=== PATIENT | female | born 1940 | race Caucasian/White ===

== ENCOUNTER 2016-05-24 10:45 | Inpatient (IN) ==
[2016-05-24] MEDS ORDERED: ASPIRIN PO STA (11:19)
--- NOTE | 2016-05-24 11:26 | PROVIDER DOCUMENTATION ---
HPI-General Adult - General Chief Complaint: B/P Problems Stated Complaint: BP PROBLEMS Time Seen by Provider: 05/24/16 10:52 Source: patient, family Allergies/Adverse Reactions: Patient Allergies Allergy/AdvReac Type Severity Reaction Status Date / Time carbamazepine [From Tegretol] Allergy Mild RASH Verified 05/24/16 12:31 Tetanus Vaccines and Toxoid Allergy Mild RASH Verified 05/24/16 12:31 [Tetanus] adhesive Allergy Unknown Verified 05/24/16 12:31 Home Medications: Home Medication List Medication Instructions Recorded Confirmed Last Taken Type Metformin [Glucophage] 500 mg PO DAILY 01/04/12 05/24/16 05/24/16 History Amantadine [Symmetrel] 100 mg PO BID 05/20/15 05/24/16 05/24/16 History Armodafinil [Nuvigil] 150 mg PO QAM 05/20/15 05/24/16 05/24/16 History Divalproex [Depakote] 500 mg PO QHS 05/20/15 05/24/16 05/23/16 History LISINOpril [Prinivil] 20 mg PO DAILY 05/20/15 05/24/16 05/24/16 History Lactobacillus Acidophilus 1 each PO QAM 05/20/15 05/24/16 05/24/16 History [Acidophilus] Lansoprazole 30 mg PO DAILY 05/20/15 05/24/16 05/24/16 History Memantine HCl/Donepezil HCl 1 each PO QHS 05/20/15 05/24/16 05/23/16 History [Namzaric 28 mg-10 mg Capsule] Metoprolol [Lopressor] 25 mg PO QHS 05/20/15 05/24/16 05/24/16 History Polyethylene Glycol 3350 [Miralax] 17 gm PO PRN PRN 05/20/15 05/24/16 05/24/16 History Psyllium Husk [Metamucil] 1 each PO DAILY 05/20/15 05/24/16 05/24/16 History Sertraline [Zoloft] 100 mg PO QHS 05/20/15 05/24/16 05/23/16 History Sodium Chloride 1,000 gm PO BID 05/20/15 05/24/16 05/24/16 History Tizanidine [Zanaflex] 2 mg PO TID 05/20/15 05/24/16 05/24/16 History Tramadol [Ultram] 50 mg PO PRN PRN 05/20/15 05/24/16 12/16/15 History l Gasseri/B Bifidum/B Longum 1 each PO DAILY 05/20/15 05/24/16 05/24/16 History [TinyBytes Capsule] - History of Present Illness -Gen Adult Nature of Presenting Problems: Pt has MS and has been [id number] with a suprapubic cath. Pt has been rotating oral Abx for prophylactic treatment. Currently taking Cipro. Reports her BP has been elevated and she had chest tightness and vomited this morning. Denies TOLBERT/F/C and reports no concerns for UTI. Pt looks comfortable when seen and reports her chest tightness is resolved. Pt denies any cardiac history and no DMII. No recent cardiac work up. Location of Pain/Injury: reports: chest Pain Radiation: reports: no radiation Quality of Pain: reports: pressure Severity: reports: mild Onset/Duration: reports: last night Timing: reports: improving, gone now Context/Activities at Onset: reports: none Modifying Factors: improves with: nothing. worse with: coughing, lying down, massage, palpation, rest, urinating Associated Symptoms: reports: denies symptoms. denies: cough, EENT symptoms, fatigue, fever/chills, loss of appetite, malaise, nausea, rash, seizure Similar Symptoms Previously?: No Recently seen or treated by another doctor?: Yes Review of Systems - Adult - REVIEW OF SYSTEMS - ADULT Constitutional: reports: no symptoms reported Eyes: reports: no symptoms reported Ears, Nose, Mouth & Throat: reports: no symptoms reported Cardiovascular: reports: see HPI, chest pain. denies: poor circulation, PND, syncope Respiratory: reports: no symptoms reported Gastrointestinal: reports: no symptoms reported Genitourinary: reports: no symptoms reported Musculoskeletal: reports: no symptoms reported, see HPI. denies: bone pain, frequent leg cramps Integumentary: reports: no symptoms reported Neurological: reports: see HPI Psychiatric: reports: no symptoms reported Endocrine: reports: no symptoms reported Hematologic/Lymphatic: reports: no symptoms reported All Other Systems: Reviewed and Negative Past History - Adult - PAST MEDICAL HISTORY-ADULT Review of Records: reports: Old Records Reviewed, Nursing Assessment Review, Medications Reviewed, Social history reviewed & non-contributory. Cardiovascular: reports: HTN Neurological: reports: CVA, Multiple Sclerosis, TIA - PRIOR SURGERIES/PROCEDURES Surgical/Procedure History: reports: reviewed, not pertinent - IMMUNIZATION STATUS Childhood Immunizations: See Nurse Assessment Flu Vaccine: See Nurse Assessment - FAMILY HISTORY Family History: reviewed, not pertinent Physical Exam-General - PHYSICAL EXAM-ADULT Initial Vital Signs Reviewed: Yes - CONSTITUTIONAL General Appearance: appears well, alert, no apparent distress - EYES Eyes: PERRL/EOMI, pink conjunctivae - HEAD, EARS, NOSE, MOUTH & THROAT HENMT: normocephalic/atraumatic, moist mucous membranes, normal ENT inspection, TMs normal, pharynx normal - NECK Neck: non-tender, full range of motion, supple, Brudzinski's sign - RESPIRATORY Respiratory: chest non-tender, lungs clear, normal breath sounds, no pleuratic chest pain, no respiratory distress, no accessory muscle use - CARDIOVASCULAR Cardiovascular: normal peripheral pulses, regular rate, rhythm, no edema, no gallop - GASTROINTESTINAL (ABDOMEN) Abdominal Exam: normal bowel sounds, non tender - MUSCULOSKELETAL Back Exam: normal inspection, no CVA tenderness, no vertebral tenderness Extremity: normal range of motion, non-tender, normal gait, normal inspection - SKIN Integumentary: normal color, normal turgor, warm/dry - NEUROLOGIC Neurologic: grossly normal, no motor/sensory deficits - PSYCHIATRIC Psych/Mental Status: normal mood/affect, normal thought content, normal thought process, oriented x 3 Progress - PLAN OF CARE/RESULTS Progress/Plan/Lab Results: Vital Signs - 8 hr 05/24/16 10:52 Temperature 97.9 F Pulse Rate 108 H Respiratory Rate 20 Blood Pressure 167/113 O2 Sat by Pulse Oximetry 100 Orders Category Date Time Status Cardiac Monitoring DIRECTED Care 05/24/16 11:19 Ordered Saline Loc NOW Care 05/24/16 11:19 Ordered CHEST-PORTABLE [RAD] Stat Exams 05/24/16 11:20 Ordered CBC WITH ELECTRONIC DIFF [HEME] Stat Lab 05/24/16 11:19 Uncollected CK PROFILE [SP CHEM] Stat Lab 05/24/16 11:19 Uncollected COMPREHENSIVE METABOLIC PANEL [CHEM] Stat Lab 05/24/16 11:19 Uncollected D-DIMER [CHEM] Stat Lab 05/24/16 11:19 Uncollected MAGNESIUM [CHEM] Stat Lab 05/24/16 11:19 Uncollected PRO B-NATRIURETIC PEPTIDE Stat Lab 05/24/16 11:19 Uncollected PROTIME WITH INR [COAG] Stat Lab 05/24/16 11:19 Uncollected PTT [COAG] Stat Lab 05/24/16 11:19 Uncollected TROPONIN T Stat Lab 05/24/16 11:19 Uncollected UA NIMS W/REFLEX CULT [URINALYSIS] Stat Lab 05/24/16 11:20 Uncollected Aspirin Med 05/24/16 11:19 Stat 325 mg PO STAT STA EKG [EKG] Stat Ther 05/24/16 11:19 Ordered Result Diagrams: 05/24/16 12:00 05/24/16 12:00 - REASSESSMENT Reassessment #1 Time Reassessed: 18:10 Status: improving (Will admit to Dr. Hameed for further work up and management.) - EKG 1 EKG Interpretation (*Must complete 3 of following elements*): Normal Rate: 100 Rhythm: NSR Frostproof: normal [place] Interval: normal ST Wave: normal - XRAY 1 XRAY Study: Chest XRAY Interpretation: Stable chest - CT/MRI 1 MRI Study: Chest Impression: Abnormal MRI Results: No PE, but ascities. Departure - Departure Time of Disposition Decision: 18:10 DIAGNOSIS: Chest pain Qualifiers: Chest pain type: precordial pain Qualified Code(s): R07.2 - Precordial pain Ascites Qualifiers: Ascites type: other type Qualified Code(s): R18.8 - Other ascites Disposition: ADMITTED INPATIENT 09 Certified Medical Emergency: Emergent Condition: Stable Referrals and Follow-Ups: David Hameed MD [Primary Care Provider] -
[2016-05-24 12:07] LABS: MANUAL DIFF NEEDED? NO
[2016-05-24 12:13] LABS: BASO% 0.4 % (0.0-0.8); EOS# 0.23 X1000 (0.0-0.7); EOS% 3.2 % (0.0-10.0); HEMATOCRIT 34.8 % (37.0-47.0); LYMPH# 1.04 X1000 (1.2-3.4); LYMPH% 14.3 % (20.5-51.1); MCH 25.4 PG (27-31); MCHC 31.6 g/dL (33-37); MCV 80.4 FL (81-99); MONO% 16.5 % (1.7-9.3); MPV 8.9 FL (7.4-10.4); NEUT% 65.6 % (42.2-75.2); PLT 120 X1000 (130-400); RBC 4.33 XMIL (4.2-5.4)
[2016-05-24 12:22] LABS: INR 1.37; PROTIME 14.7 Seconds (9.2-11.7); PTT 30.6 Seconds (22.0-36.0)
[2016-05-24 12:28] LABS: AGAP 11; ALBUMIN 3.2 g/dL (3.5-5.0); ALKALINE PHOSPHATASE 150 U/L (32-104); BUN 7 mg/dL (8-22); CALCIUM 9.2 mg/dL (8.8-10.2); CHLORIDE 101 mmol/L (98-107); CK PROFILE 39 U/L (24-173); COSMO 272; GOT 37 U/L (10-30); GPT 21 U/L (10-36); MAGNESIUM 1.5 mg/dL (1.5-2.7); POTASSIUM 4.2 mmol/L (3.5-5.1); SODIUM 135 mmol/L (136-145); TCO2 23 mmol/L (25-35); TOTAL BILIRUBIN 0.56 mg/dL (0.20-1.00); TOTAL PROTEIN 7.1 g/dL (6.3-8.3)
[2016-05-24] MEDS ORDERED: LABETALOL IV ONE (12:29)
[2016-05-24] MEDS ORDERED: NS 1,000 ML IV ONE ×2 (12:30→13:00)
--- NOTE | 2016-05-24 13:28 | Diag Imaging Result Document ---
PROCEDURE NAME: CHEST-PORTABLE - 05/24/2016 PORTABLE CHEST: COMPARISON: December 23, 2015. FINDINGS: The heart size is normal. Inspiration is mildly shallow, with mild subsegmental atelectasis at the right base. The remainder of the lungs appear clear. There is no pleural effusion or pneumothorax identified. IMPRESSION: Mildly shallow inspiration, with mild right basilar subsegmental atelectasis. No other evidence of acute disease.
[2016-05-24 15:44] LABS: URINE MICRO REVIEW NEEDED? NO; URINE SOURCE CLEAN CATCH
[2016-05-24 15:53] LABS: BILIRUBIN URINE NEGATIVE (NEGATIVE); BLOOD URINE SMALL (NEGATIVE); COLOR YELLOW; GLUCOSE URINE NEGATIVE (NEGATIVE); LEUKOCYTES URINE SMALL (NEGATIVE); NITRITE URINE POSITIVE (NEGATIVE); PROTEIN URINE TRACE mg/dL (NEGATIVE); SP GRAVITY URINE 1.015; TURBIDITY URINE CLEAR (CLEAR); UR EPITHELIAL CELLS <10 /HPF (<10); URINE BACTERIA 1+ /HPF; URINE RBC 20-40 /HPF (<10); UROBILINOGEN URINE NORMAL (NORMAL)
[2016-05-24] MEDS ORDERED: APRESOLINE IV ONE (16:00)
--- NOTE | 2016-05-24 16:22 | Diag Imaging Result Document ---
PROCEDURE NAME: ANGIOGRAM/PULMONARY ARTERIES - 05/24/2016 CT ANGIOGRAM PULMONARY ARTERIES WITH CONTRAST: Examination performed with intravenous contrast. A dose-reduction protocol was used. Axial and reformatted coronal images are obtained. FINDINGS: There are mild artifacts from motion at the lower lobes. Otherwise, there are no filling defects identified in the pulmonary arteries. There is no indication of aortic dissection. There is some dependent atelectasis, primarily on the right. There is a possible tiny right pleural effusion. There is no consolidation, substantial pleural effusion, or pneumothorax identified. There is a 1.1 cm nodule, which contains coarse peripheral calcifications, noted at the lower outer left breast. This likely represents a fibroadenoma. Included sections of the upper abdomen show ascites. IMPRESSION: 1. No evidence of pulmonary embolism. 2. No pneumonia. No pneumothorax. 3. Probable 1.1 cm fibroadenoma at lower outer left breast. Correlation with mammogram is recommended. 4. Upper abdominal ascites. [facility]
[2016-05-24 16:31] LABS: URINE CULTURE NEEDED? YES
[2016-05-24] MEDS ORDERED: MORPHINE IV ONE (18:08)
[2016-05-24] MEDS ORDERED: ZOFRAN IV ONE (18:08)
[2016-05-24] MEDS ORDERED: ROCEPHIN 1 GM/NS 1 GM/50 ML IVPB IV ONE (18:18)
[2016-05-24] MEDS ORDERED: MIRALAX PO PRN (20:44)
[2016-05-24] MEDS: SODIUM CHLORIDE 0.9% INJ SCH (22:12)
[2016-05-24] MEDS: PROTONIX IV SCH (22:12)
[2016-05-24] MEDS: SYMMETREL PO SCH (22:12)
[2016-05-24] MEDS: DEPAKOTE PO SCH (22:13)
[2016-05-24] MEDS: LEVAQUIN 500 MG/D5W 500 MG/100 ML IVPB IV SCH (22:14)
--- NOTE | 2016-05-24 22:14 | HISTORY AND PHYSICAL ---
CHIEF COMPLAINT: Shortness of breath, swelling of feet, swelling of the abdomen. HISTORY OF PRESENT ILLNESS: She is a 75-year-old pleasant white female, was brought into the emergency room with above complaints. Upon workup the patient was ruled out for PE. She had a left breast fibroadenoma. Incidental she has some ascites noted. Basically admitted to the hospital for new onset of ascites and UTI treatment. As a result, hospital admission was warranted. 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 MEDICATIONS: Metformin 500 daily, Ultram 50 q.6 as needed, Culturelle 1 tablet daily, sodium chloride tablets p.o. b.i.d., MiraLAX as needed, lisinopril 20 daily, Zanaflex 2 mg p.o. t.i.d., Metamucil 1 teaspoon daily, Zoloft 100 daily, metoprolol 25 daily, Prevacid 30 mg daily, amantadine 100 p.o. b.i.d., Namzaric 28/10 one tablet daily, Depakote 500 daily, Nuvigil 150 daily, amlodipine 10 mg daily, hydrocortisone suppository as needed. ALLERGIES: Reported to [facility] in the past edema, carbamazepine, tetanus toxoid. SOCIAL HISTORY: , 4 children. Retired. No smoking. No alcohol. Lives in [place]. Disabled from the multiple sclerosis. Using the power scooter. FAMILY HISTORY: Mom had thalassemia, with end-stage dementia. Father of old age. HEALTH MAINTENANCE: Last mammography 02/2016, colonoscopy [address] Terrell. REVIEW OF SYSTEMS: HEENT: No headache. No vision problem. Eyes are matted up on the left side. No earache. No sore throat. Neck: No goiter. No lymphadenopathy. No bruit. Cardiopulmonary: Chest pain, shortness of breath, PND, orthopnea. Mild swelling of feet. GI: Abdominal swelling, nausea, hemorrhoids are acting up, no skin breaks. : Neurogenic bladder. SPC catheter was seen by Dr. Rubi. Extremities: Mild swelling of feet. Neuro: No obvious weakness or deficits from the baseline. PHYSICAL EXAMINATION: VITAL SIGNS: Afebrile, tachycardic, blood pressure slightly high, on room air 98%. HEENT: Atraumatic, normocephalic. Left eye is matted up. Nose and throat within normal limits. TMs are normal. NECK: Supple. JVD is not elevated. CHEST: Bilateral air entry. HEART: Sounds are slightly tachycardic with flow murmur noted 1/6. BELLY: Soft and ascites present, no signs of peritonitis. SPC catheter seen. EXTREMITIES: 1+ edema. NEURO: No obvious deficits other than from the multiple sclerosis. INVESTIGATIONS: CBC. White cell count 7.2, hematocrit 34, platelet count 120,000. PT 14, INR 1.3. D-dimer slightly positive. SMA 7, sodium 135, potassium 4.2 chloride 101, BUN 7, creatinine 0.9, glucose 174. AST, ALT normal, alkaline phosphatase slightly elevated. Cardiac enzymes were normal. ProBNP 1500, total protein 7.1, albumin 3.2. Urinalysis positive for infection. Chest x-ray, low lung volumes, no evidence of acute disease. Pulmonary angiogram. No evidence of PE and no pneumonia, pneumothorax, 1.1 cm fibroadenoma and upper abdominal ascites noted. ASSESSMENT AND PLAN: 1. A 75-year-old white female with the above problems admitted to the hospital new onset of ascites etiology to be determined. Plan is complete the study with a CT of the abdomen and pelvis with contrast and ultrasound-guided thoracentesis for diagnosis, to check cell count, protein, albumin for the serum, albumin ascitic gradient cytology. In the meantime IV Lasix, fluid restrictions, daily weights. 2. Hemorrhoids. Will use the hydrocortisone suppository. 3. Gastrointestinal prophylaxis with IV Protonix. 4. Urinary tract infection with IV Levaquin. 5. Hypertension on lisinopril, metoprolol. 6. Hyperdynamic heart with flow murmurs with left ventricular outflow tract obstruction and continue on beta blockers and reconcile home medications. 7. Left fibroadenoma, recent mammography in my office is unremarkable and will follow up. cc: Marquez Hameed MD
[2016-05-24] MEDS: LOPRESSOR PO SCH (22:15)
[2016-05-24] MEDS: ZOLOFT PO SCH (22:15)
[2016-05-24] MEDS: NAMENDA XR PO SCH (22:38)
[2016-05-24] MEDS: ARICEPT PO SCH (22:38)
[2016-05-24] MEDS: ULTRAM PO PRN (23:41)
[2016-05-25 06:43] LABS: INR 1.45; PROTIME 15.6 Seconds (9.2-11.7)
[2016-05-25 07:10] LABS: AGAP 11; ALBUMIN 2.7 g/dL (3.5-5.0); ALKALINE PHOSPHATASE 117 U/L (32-104); AMYLASE 57 U/L (20-200); BUN 7 mg/dL (8-22); CALCIUM 9.2 mg/dL (8.8-10.2); CHLORIDE 101 mmol/L (98-107); COSMO 269; GOT 34 U/L (10-30); GPT 17 U/L (10-36); POTASSIUM 4.1 mmol/L (3.5-5.1); SODIUM 135 mmol/L (136-145); TCO2 23 mmol/L (25-35); TOTAL BILIRUBIN 0.43 mg/dL (0.20-1.00); TOTAL PROTEIN 6.2 g/dL (6.3-8.3)
[2016-05-25] MEDS: CULTURELLE PO SCH (09:08)
[2016-05-25] MEDS: METAMUCIL PO SCH ×2 (09:08)
[2016-05-25] MEDS: LASIX IV SCH (09:08)
[2016-05-25] MEDS: PATIENT'S OWN MED PO SCH (09:09)
[2016-05-25] MEDS: SYMMETREL PO SCH ×2 (09:10→22:18)
[2016-05-25] MEDS: PRINIVIL PO SCH (09:10)
--- NOTE | 2016-05-25 10:09 | Diag Imaging Result Document ---
PROCEDURE NAME: CT ABD/PELVIS W/ IV CONT ONLY - 05/25/2016 CT ABDOMEN AND PELVIS WITH INTRAVENOUS CONTRAST: FINDINGS: The gallbladder has been removed. The liver is hypodense and multinodular. I believe there are several cysts scattered in the liver. Normal spleen, pancreas, and adrenal glands. No solid renal masses. I believe there is scarring to each kidney. Mild atherosclerosis. No aneurysmal dilatation to the abdominal aorta. There is a small amount of abdominal and pelvic ascites. The bowel loops are not dilated. I believe the ascending colon has been removed. There is a suprapubic catheter within the urinary bladder. The urinary bladder is only mildly distended. The uterus has been removed. No pelvic mass. IMPRESSION: 1. Fatty multinodular liver possibly due to cirrhosis. 2. There is a small amount of abdominal and pelvic ascites. 3. Cholecystectomy. 4. Hysterectomy. 5. Suprapubic catheter.
--- NOTE | 2016-05-25 10:31 | Diag Imaging Result Document ---
PROCEDURE NAME: US ABDOMEN-COMPLETE - 05/25/2016 ABDOMINAL ULTRASOUND: FINDINGS: The liver is markedly inhomogeneous in echotexture and nodular in contour. There is ascites. There has been cholecystectomy. The common bile duct measures 6 mm. The spleen is enlarged measuring over 15 cm. The kidneys are without evidence of hydronephrosis or mass. There is antegrade flow in the portal vein. The pancreatic head and body are normal in appearance. The visualized portions of the aorta and inferior vena cava are within normal limits. Compared to 05/20/2015, the ascites was not previously demonstrated. It was demonstrated on the chest CT of 05/24/2016. IMPRESSION: Cirrhosis with splenomegaly and ascites.
--- NOTE | 2016-05-25 12:10 | Diag Imaging Result Document ---
PROCEDURE NAME: US PARACENTESIS - 05/25/2016 ULTRASOUND-GUIDED PARACENTESIS: COMPARISON: None available. FINDINGS: Risks, benefits, and alternatives were discussed with the patient, and informed consent was obtained. The patient was prepped and draped in sterile fashion and local anesthesia was achieved with 1% lidocaine solution. Using ultrasound guidance, a large-bore catheter was inserted into the peritoneal cavity on the right and approximately 4300 mL of straw-colored serous fluid that was very minimally cloudy was aspirated. There were no known complications. A sample was sent for laboratory analysis. IMPRESSION: Technically successful ultrasound-guided paracentesis.
[2016-05-25 12:34] LABS: SPECIMEN ASCETIC FLUID
[2016-05-25] MEDS ORDERED: TYLENOL PO PRN (14:26)
[2016-05-25] MEDS: HYDROCORTISONE 1% CREAM TOP PRN ×2 (15:54→22:16)
[2016-05-25] MEDS: ULTRAM PO PRN (17:42)
--- NOTE | 2016-05-25 19:26 | PROGRESS NOTE ---
DATE: 05/25/2016 SUBJECTIVE: This morning patient is out of the room. Patient has gone for a CT of the abdomen and pelvis, and ultrasound, waiting for paracentesis of fluid. I discussed with the radiologist definitely patient has cirrhosis of liver with ascites moderate and splenomegaly. REVIEW OF SYSTEMS: The patient complains of abdominal swelling. No chest pain or shortness of breath. Mild swelling of feet. Gastrointestinal: Also complains of hemorrhoidal pain. PHYSICAL EXAMINATION: Vital Signs: Low grade fever, tachycardic, blood pressure is stable, pulse oximetry 100%. I's and O's: -2.3 L. HEENT: Atraumatic, normocephalic. Pupils equal, reactive to light. TMs are normal. Neck: Supple. No lymphadenopathy. JVD is normal. Chest: Clear. Hyperdynamic heart with flow murmur. Abdomen: Soft and has fluid present. No signs of peritonitis. SPC catheter seen. Extremities: 1+ pedal edema. INVESTIGATIONS: PT 15, INR 1.4, SMA 7, sodium 135, potassium 4.1, chloride 101 , BUN 11, creatinine 0.8, glucose 113. AST, ALT, alkaline prostate was normal, proBNP is normal, total protein 6.2, albumin 2.7, amylase 57. Abdominal ultrasound: Cirrhosis with splenomegaly and ascites. CT scan of the abdomen and pelvis: Fatty multinodular liver due to cirrhosis, cholecystectomy, hysterectomy, suprapubic catheter and ascites noted. ASSESSMENT AND PLAN: 1. New onset of ascites. Plan is ultrasound-guided paracentesis. I discussed with Dr. Morfin. Plan is we will measure the serum ascites albumin gradient. 2. Continue diuresis. 3. Prophylactic antibiotics for IV Levaquin. 4. Hemorrhoidal pain: Suppository hydrocortisone. 5. Follow up on hepatitis profile B and C based on the serum ascites albumin gradient. 6. Further recommendations will be followed. I discussed with patient and . 7. Follow up on pending labs. cc: Marquez Hameed MD MTDD
[2016-05-25] MEDS: LEVAQUIN 500 MG/D5W 500 MG/100 ML IVPB IV SCH (22:16)
[2016-05-25] MEDS: DEPAKOTE PO SCH (22:17)
[2016-05-25] MEDS: DITROPAN XL PO SCH (22:18)
[2016-05-25] MEDS: PROTONIX IV SCH (22:18)
[2016-05-25] MEDS: ARICEPT PO SCH (22:18)
[2016-05-25] MEDS: ZOLOFT PO SCH (22:18)
[2016-05-25] MEDS: SODIUM CHLORIDE 0.9% INJ SCH (22:18)
[2016-05-25] MEDS: NAMENDA XR PO SCH (22:18)
[2016-05-25] MEDS: LOPRESSOR PO SCH (22:18)
[2016-05-26] MEDS: LASIX IV SCH (08:08)
[2016-05-26] MEDS: SYMMETREL PO SCH ×2 (08:08→21:55)
[2016-05-26] MEDS: METAMUCIL PO SCH ×2 (08:08)
[2016-05-26] MEDS: CULTURELLE PO SCH (08:08)
[2016-05-26] MEDS: PRINIVIL PO SCH (08:08)
[2016-05-26] MEDS: PATIENT'S OWN MED PO SCH (09:16)
[2016-05-26] MEDS: ANUSOL-HC SUPP PR SCH (09:20)
[2016-05-26 10:35] LABS: HEPATITIS PROFILE ACUTE SEE COMMENTS
--- NOTE | 2016-05-26 18:14 | PROGRESS NOTE ---
DATE: 05/26/2016 SUBJECTIVE: The patient had ultrasound thoracentesis. Removed 4.3 L of fluid. Appears to be transudate. The patient is doing very well. Denies of any shortness of breath. REVIEW OF SYSTEMS: None reported. OBJECTIVE: Vital signs: Low-grade fever. Temperature is 98 degrees, pulse is 94, respirations 20, blood pressure is 136/78, weight is 180 pounds. HEENT: Atraumatic, normocephalic. Pupils equal, reactive to light. No anemia, no cyanosis. No jaundice. Neck: Supple. JVD is not elevated. Chest: Clear to auscultation. Heart: Sounds are regular, no murmur. Belly: Soft, less distended and hemorrhoids noted. Extremities: 1+ edema, no obvious deficits noted. INVESTIGATIONS: INR 1.4 and SMA 7 is normal. Serum ascitic albumin gradient 1.7. Total protein is 2.0. Hepatitis panel is negative for B and C. ASSESSMENT AND PLAN: 1. Cirrhosis of liver and portal hypertension. Splenomegaly. Serum ascitic albumin gradient more than 1.1. Most likely fatty liver given the negative for hepatitis B and C. Also check other causes for cirrhosis and Dr. Tyler consult. Continue fluid restrictions. Daily weights. IV Lasix. Lab orders are alpha antitrypsin, ceruloplasmin, hemochromatosis, transferrin saturation. 2. Fever, urinary tract infection. Urine culture showing gram-negative nereida. Follow up on C and S. Continue IV Levaquin. 3. Type 2 diabetes, controlled and will follow up. cc: Marquez Hameed MD
[2016-05-26] MEDS ORDERED: DEBROX OTIC DROPS LEFT EAR PRN (20:57)
[2016-05-26] MEDS: DEPAKOTE PO SCH (21:54)
[2016-05-26] MEDS: LEVAQUIN 500 MG/D5W 500 MG/100 ML IVPB IV SCH (21:55)
[2016-05-26] MEDS: SODIUM CHLORIDE 0.9% INJ SCH (21:55)
[2016-05-26] MEDS: ARICEPT PO SCH (21:55)
[2016-05-26] MEDS: DITROPAN XL PO SCH (21:55)
[2016-05-26] MEDS: PROTONIX IV SCH (21:55)
[2016-05-26] MEDS: LOPRESSOR PO SCH (21:55)
[2016-05-26] MEDS: NAMENDA XR PO SCH (21:56)
[2016-05-26] MEDS: ZOLOFT PO SCH (22:14)
--- NOTE | 2016-05-27 09:00 | PROGRESS NOTE ---
DATE: 05/27/2016 SUBJECTIVE: Patient is not offering any complaints. Her is feeding her and eating well. REVIEW OF SYSTEMS: Denies of any chest pain, shortness of breath, PND, orthopnea. GI: No abdominal pain or discomfort. Review of systems is normal. PHYSICAL EXAMINATION: Vital Signs: Afebrile, pulse is 87, blood pressure is 170/70. She just came off BiPAP machine. Is and Os: Are -1.6. Total, patient was negative about 7 L. HEENT: Examination within normal limits. Neck: Supple. JVD is normal. Chest: Clear. Heart: Heart sounds are regular. Abdomen: Belly is soft. No signs of peritonitis. SPC catheter is intact. Extremities: Decrease in peripheral edema. INVESTIGATIONS: Transferrin saturation is negative. Hepatitis B and C were negative. Urine cultures positive for gram-negative rods. Peritoneal fluid is negative. ASSESSMENT AND PLAN: 1. New onset of ascites due to cirrhosis of liver, presumed to be fatty liver. Transferrin saturation is negative. Hepatitis B and C were negative. Most likely fatty liver. Follow up on the hemochromatosis gene and Alpha antitrypsin. Plan is fluid restrictions, daily weights, and initiate Aldactone. Continue on beta blockers. 2. Hemorrhoid. Continue hydrocortisone suppository. 3. Fever, urinary tract infection. On Levaquin. Follow up on C and S. Dr. Trinidad has been consulted and discussed with the patient, , and hopefully will be discharged soon. cc: Marquez Hameed MD MTDD
[2016-05-27] MEDS: LASIX IV SCH (10:23)
[2016-05-27] MEDS: SYMMETREL PO SCH ×2 (10:23→21:27)
[2016-05-27] MEDS: PRINIVIL PO SCH (10:24)
[2016-05-27] MEDS: ANUSOL-HC SUPP PR SCH (10:24)
[2016-05-27] MEDS: CENTRUM SILVER PO SCH (10:24)
[2016-05-27] MEDS: CULTURELLE PO SCH (10:24)
[2016-05-27] MEDS: METAMUCIL PO SCH ×2 (10:24)
[2016-05-27] MEDS: PATIENT'S OWN MED PO SCH (10:52)
[2016-05-27] MEDS: ULTRAM PO PRN (16:08)
--- NOTE | 2016-05-27 17:09 | PROGRESS NOTE ---
DATE: 05/27/2016 SUBJECTIVE: Patient is resting in bed. Patient's is present at the bedside. The patient denies any nausea, vomiting, abdominal pain, or diarrhea. The patient has history of multiple sclerosis since the late 1970s and she is wheelchair bound. She is being treated by Dr. Lane as an outpatient for chronic MS. The patient was admitted with new onset of ascites and the chronic liver disease workup so far has pointed towards fatty liver disease as the likely etiology. Most history was gleaned from the patient's chart, patient's , and the inpatient. OBJECTIVE: Vital Signs: Temperature of 98.4 degrees, pulse of 87, respiratory rate 14, blood pressure 140/60, saturating 94% on room air. Body weight of 180 pounds, BMI 29.1. General: The patient is obese, lying in bed in no acute distress. HEENT: Pale conjunctivae. No icterus. Neck: Supple. Chest: Decreased in the bases. Cardiovascular: Regular rhythm. Tachycardic at times. Abdomen: Obese, midline scar noted, positive ascites. No rebound or guarding. Bowel sounds are present, but hypoactive. Extremities: No cyanosis or clubbing. Lack of muscle in the lower extremities from immobility and MS. Neurologic: She was awake and alert, and answered questions. LABORATORIES: Her hemoglobin and hematocrit are 11 and 34.8, white count 7.2, platelet count of 120,000, MCV of 80.4. INR 1.45. PT of 15.6. PTT of 30.6. Sodium 135, potassium 4.1, chloride 101, bicarbonate 20, anion gap 11, BUN of 7, creatinine 0.8, glucose of 113, calcium 9.2. Total bilirubin is 0.4. AST 34, ALT 17. Alkaline phosphatase 117. Total protein 6.2. Albumin of 2.7. Amylase of 57. Her transferrin level is 277. Urinalysis was positive for UTI. Ascitic fluid showed SAAG of more than 1.1, suggesting portal hypertension, liver cirrhosis as well as ascites. Anti LATOYA antibody was negative. Acute hepatitis panel is nonreactive. Abdominal/pelvic CT scan done on 05/25/2016 showed: 1. Fatty multinodular liver, possibility of cirrhosis. 2. A small amount of abdominal and pelvic ascites. 3. Cholecystectomy. 4. Hysterectomy. 5. Suprapubic catheter. IMPRESSIONS AND PLAN: 1. New diagnosis of ascites secondary to portal hypertension and liver cirrhosis. We will follow the chronic liver disease workup. So far, she has a negative acute hepatitis panel and normal iron studies. The initial workup points towards fatty liver as the likely etiology. In this regard, we will keep her on a low-sodium diet of less than 2 g in 24 hours. Restrict her free fluid to less than 1.5 L in 24 hours. We will avoid any hepatotoxic drugs. She will need to have daily weights. We will keep her on Lasix and Aldactone. 2. We will check ammonia level and if it is elevated, she may benefit from lactulose and Xifaxan. 3. Gastrointestinal prophylaxis with PPIs. 4. Urinary tract infection and fever, on Levaquin. Cultures being performed by the primary care team. 5. We will follow the RENZO levels and the rest of the chronic liver disease workup laboratories. The above plan of care was discussed with the patient and family at bedside and all questions were answered. cc: MD Marquez Pérez MD
[2016-05-27] MEDS: LOPRESSOR PO SCH (21:27)
[2016-05-27] MEDS: ARICEPT PO SCH (21:27)
[2016-05-27] MEDS: DITROPAN XL PO SCH (21:27)
[2016-05-27] MEDS: NAMENDA XR PO SCH (21:27)
[2016-05-27] MEDS: ZOLOFT PO SCH (21:27)
[2016-05-27] MEDS: SODIUM CHLORIDE 0.9% INJ SCH (21:28)
[2016-05-27] MEDS: DEPAKOTE PO SCH (21:28)
[2016-05-27] MEDS: PROTONIX IV SCH (21:28)
[2016-05-27] MEDS: LEVAQUIN 500 MG/D5W 500 MG/100 ML IVPB IV SCH (21:28)
[2016-05-28] MEDS: PRINIVIL PO SCH (09:35)
[2016-05-28] MEDS: CENTRUM SILVER PO SCH (09:36)
[2016-05-28] MEDS: SYMMETREL PO SCH ×2 (09:36→22:46)
[2016-05-28] MEDS: PATIENT'S OWN MED PO SCH (09:36)
[2016-05-28] MEDS: METAMUCIL PO SCH ×2 (09:36)
[2016-05-28] MEDS: CULTURELLE PO SCH (09:36)
[2016-05-28] MEDS: LASIX IV SCH (09:36)
[2016-05-28] MEDS: ANUSOL-HC SUPP PR SCH (09:36)
--- NOTE | 2016-05-28 13:18 | PROGRESS NOTE ---
DATE: 05/28/2016 SUBJECTIVE: Patient currently resting in bed. She denies any new complaints. Denies any nausea or vomiting. She has not had a bowel movement today. She denies any abdominal pain. She denies any fevers, rigors or chills. Vital signs: Temperature 98.6 degrees, pulse rate of 86, respiratory rate 16, blood pressure 148/83, saturating 90% on room air. BMI 29.1 kg/m2. General Appearance: Is obese, lying in bed, in no acute distress. HEENT: Mild pallor. No icterus. Neck: Supple. Abdomen: Is protuberant, mild obesity. No rebound, no guarding. Positive ascites. Bowel sounds. Extremities: No cyanosis, clubbing. She has lack of muscle mass in the lower extremities. She has immobility secondary to multiple sclerosis. Neurologic : She was sleeping. Was able to wake up on commands and answer simple questions. LABS: Her INR 1.45. Alpha-1 antitrypsin level 167 which is normal. Ammonia level 89 which is high and trans level was 277 which is normal. Urinalysis positive UTI. She has suprapubic catheter. Ascitic fluid SAAG is more than 1.1 suggesting portal hypertension. RENZO is negative. Hepatitis panel is nonreactive. IMPRESSION AND PLAN: 1. Fatty liver cirrhosis complicated with portal hypertension, ascites, coagulopathy, thrombocytopenia, hyperammonemia. In this regard we will start her on lactulose 30 mL p.o. b.i.d. and hold for more than 3 bowel movements per 24 hours. Keep her on multivitamin once daily. We will keep her on low-sodium diet less than 2 g 24 hours. We will restrict the free fluid to less than 5 L in 24 hours. We will avoid any hepatotoxic drugs. We will keep her on gentle diuretics and keep a close eye on her kidney function. 2. The patient has mild coagulopathy with INR 1.45. We may have to give her a dose of vitamin K if it exceeds 1.5. 3. GI prophylaxis, PPIs. 4. UTI currently on Levaquin. 5. Elevated ammonia: will check in few days after initiating Lactulose 6. Multiple sclerosis: known history since 1970's being followed by Dr. Lane as an outpatient. 7. Discussed the above with the patient. Further recommendations to follow pending the hospital course. cc: MD Marquez Pérez MD MTDD
[2016-05-28] MEDS: LACTULOSE PO SCH ×2 (15:17→22:47)
--- NOTE | 2016-05-28 20:03 | PROGRESS NOTE ---
DATE: 05/28/2016 SUBJECTIVE: No complaints. The patient was seen by operations consultant, Dr. Trinidad. REVIEW OF SYSTEMS: None reported. PHYSICAL EXAMINATION: Vital Signs: Afebrile, pulse is 86, respirations 16, blood pressure 140/80, BMI is 29. HEENT: Within normal limits. Neck: Supple. No lymphadenopathy. Chest: Clear. Heart: Sounds are regular. Abdomen: Belly is soft, nontender. Good bowel sounds and no masses palpable. Extremities: Decreased edema. INVESTIGATIONS: Alpha antitrypsin is normal. Ammonia level is 89. Transferrin saturation is normal. Urine cultures grew gram-negative rods. RENZO was negative. ASSESSMENT AND PLAN: 1. Fatty liver cirrhosis complicated by portal hypertension, ascites, coagulopathy, thrombocytopenia, hyperammonemia. Continue on lactulose, low-salt diet, discontinue sodium chloride tablets. 2. International normalized ratio is 1.5. Vitamin K if INR more than 1.5. 3. Gastrointestinal prophylaxis with proton pump inhibitor. 4. Urinary tract infection. Continue on Levaquin which is sensitive Escherichia coli and hopefully patient will be discharged in the morning. Thanks for the consulting report, Dr. Trinidad. cc: Marquez Hameed MD [facility]
[2016-05-28] MEDS: LEVAQUIN 500 MG/D5W 500 MG/100 ML IVPB IV SCH (22:45)
[2016-05-28] MEDS: DITROPAN XL PO SCH (22:46)
[2016-05-28] MEDS: NAMENDA XR PO SCH (22:46)
[2016-05-28] MEDS: LOPRESSOR PO SCH (22:46)
[2016-05-28] MEDS: ZOLOFT PO SCH (22:46)
[2016-05-28] MEDS: ARICEPT PO SCH (22:46)
[2016-05-28] MEDS: DEPAKOTE PO SCH (22:46)
[2016-05-28] MEDS: SODIUM CHLORIDE 0.9% INJ SCH (22:47)
[2016-05-28] MEDS: PROTONIX IV SCH (22:47)
--- NOTE | 2016-05-29 03:58 | Extremity Venous Study ---
PROCEDURE NAME: Venous U/S Bilateral Legs - 05/24/2016 STUDY: Bilateral lower extremity venous duplex study. REFERRING PHYSICIAN: Svetlana Marr MD READING PHYSICIAN: Yoel Chowdary MD ECONOMETRICIAN: [place] INDICATION: Right leg pain and swelling. FINDINGS: The deep and superficial veins of both lower extremities were imaged throughout their course. All are compressible with forward flow. No thrombus is appreciated. INTERPRETATION: There is no evidence of deep or superficial vein venous thrombosis in either lower extremity. cc: MD Marquez Argueta MD
[2016-05-29 07:42] VITALS: BP 146/73
--- NOTE | 2016-06-01 21:34 | DISCHARGE SUMMARY ---
ADMISSION DATE: 05/24/2016 DISCHARGE DATE: 05/29/2016 DISCHARGING DIAGNOSIS: Cirrhosis of liver due to nonalcoholic steatohepatitis with portal hypertension with splenomegaly and hemorrhoids. SECONDARY DIAGNOSES: 1. Dementia. Mini-mental exam . 2. Type 2 diabetes. 3. Metabolic syndrome. 4. Hypertension. 5. Hyperlipidemia. 6. Multiple sclerosis. 7. Neurogenic bladder. 8. Urinary tract infection with Escherichia coli. 9. Acid reflux disease. 10. Peripheral neuropathy. 11. Vitamin D deficiency. 12. Left breast fibroadenoma. 13. 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 CONSULTANTS: Dr. Trinidad. PROCEDURES: Diagnostic and therapeutic ultrasound-guided paracentesis. SAAG is more than 1.1. BRIEF HISTORY: Please see the H and P that was done on 05/24/2016. In brief she is a 75-year- old pleasant white female, was admitted to the hospital with a abdominal swelling and swelling of feet and the patient came in with shortness of breath, PND, orthopnea. Initial workup in the emergency room CT pulmonary angiogram is negative, 1.1 cm fibroadenoma on the left breast and ascites noted. She also had a fever. HOSPITAL COURSE: 1. Fever due to UTI from E. coli sensitive to Levaquin. 2. New onset of ascites. CT scan of the abdomen and pelvis findings were noted consistent with cirrhosis of liver and portal hypertension. The patient also had elevated ammonia levels. Ultrasound-guided paracentesis done. It showed portal hypertension due to cirrhosis with a SAAG more than 1.1. Dr. Trinidad has been consulted. Further workup, hepatitis profile is negative for hepatitis B and C. RENZO was negative. Alpha antitrypsin, hemochromatosis were negative. The patient had 4 L of fluid was removed. Transudate cytology was negative. Patient has painful hemorrhoids requiring hydrocortisone suppository. She was advised to discontinue sodium chloride tablets, continue fluid restriction and Aldactone. She was also started on beta blockers for nadolol. Findings were discussed with the patient's . LABORATORIES: At the time of discharge CBC: White cell count 7.2, hematocrit 34, platelets 120,000. PT 15, INR 1.45. SMA 7. Sodium 135, potassium 4, chloride 101, BUN 7, creatinine 0.8, glucose 113, calcium 9.2, magnesium 1.5, AST, ALT normal, alkaline phos 117, albumin 2.7. Alpha antitrypsin, ceruloplasmin levels were normal. Amylase was normal. Ammonia was 89. Anti-DNA antibody was negative. Hepatitis B and C were negative. Hemochromatosis gene is negative. RADIOLOGY PROCEDURES: CT scan of the abdomen and pelvis. Fatty multinodular consistent with cirrhosis, cholecystectomy, hysterectomy, SPC catheter. Abdominal ultrasound. Cirrhosis with splenomegaly and ascites. Spleen was enlarged to 15 cm. Pulmonary arteriogram was negative for PE. Extremity venous studies. No evidence of DVT noted. At the time of discharge the patient's weight 180 pounds. DISCHARGE INSTRUCTIONS: Daily weights. Fluid restrictions 1.5 L. Discontinue sodium chloride tablets. Metformin 500 daily, tramadol 50 as needed, Culturelle 1 tablet daily, MiraLAX as needed, lisinopril 20 mg daily, Metamucil 1 tablet daily, Zanaflex 2 mg p.o. t.i.d., Zoloft 100 daily, discontinue Lopressor, Prevacid 30 mg daily, amantadine 100 p.o. b.i.d., Namzaric 28/10 one tablet daily, Depakote 500 daily, Nuvigil 150 daily, Ditropan 10 mg as needed, hydrocortisone suppository 25 at bedtime, lactulose 15 mL p.o. b.i.d. as needed, nadolol 40 mg daily. Continue on Cipro 500 p.o. b.i.d. since she has a prescription and outpatient home health care and follow up in my office in 10 days as well as Dr. Trinidad. cc: MD Dr. Amos Kenny
== END 2016-05-29 10:01 | disposition home health service (06) ==
LOC: ED 10:45 → 4N 18:50
PROVIDERS: ADMIT Internal Medicine; ATTEND Internal Medicine

== ENCOUNTER 2016-06-29 19:06 | Inpatient (IN) ==
[2016-06-29] MEDS ORDERED: NS 500 ML IV ONE (20:10)
--- NOTE | 2016-06-29 20:10 | PROVIDER DOCUMENTATION ---
HPI-General Adult - General Chief Complaint: B/P Problems Stated Complaint: LOW B/P Time Seen by Provider: 06/29/16 20:00 Source: family Unable to obtain history due to:: altered Allergies/Adverse Reactions: Patient Allergies Allergy/AdvReac Type Severity Reaction Status Date / Time carbamazepine [From Tegretol] Allergy Mild RASH Verified 06/29/16 21:11 Tetanus Vaccines and Toxoid Allergy Mild RASH Verified 06/29/16 21:11 [Tetanus] adhesive Allergy Unknown Verified 06/29/16 21:11 Home Medications: Home Medication List Medication Instructions Recorded Confirmed Last Taken Type Metformin [Glucophage] 500 mg PO DAILY 01/04/12 05/24/16 05/24/16 History Amantadine [Symmetrel] 100 mg PO BID 05/20/15 05/24/16 05/24/16 History Armodafinil [Nuvigil] 150 mg PO QAM 05/20/15 05/24/16 05/24/16 History Divalproex [Depakote] 500 mg PO QHS 05/20/15 05/24/16 05/23/16 History LISINOpril [Prinivil] 20 mg PO DAILY 05/20/15 05/24/16 05/24/16 History Lactobacillus Acidophilus 1 each PO QAM 05/20/15 05/24/16 05/24/16 History [Acidophilus] Lansoprazole 30 mg PO DAILY 05/20/15 05/24/16 05/24/16 History Memantine HCl/Donepezil HCl 1 each PO QHS 05/20/15 05/24/16 05/23/16 History [Namzaric 28 mg-10 mg Capsule] Polyethylene Glycol 3350 [Miralax] 17 gm PO PRN PRN 05/20/15 05/24/16 05/24/16 History Psyllium Husk [Metamucil] 1 each PO DAILY 05/20/15 05/24/16 05/24/16 History Sertraline [Zoloft] 100 mg PO QHS 05/20/15 05/24/16 05/23/16 History Tizanidine [Zanaflex] 2 mg PO TID 05/20/15 05/24/16 05/24/16 History Tramadol [Ultram] 50 mg PO PRN PRN 05/20/15 05/24/1612/15/16 History l Gasseri/B Bifidum/B Longum 1 each PO DAILY 05/20/15 05/24/16 05/24/16 History [[facility] Capsule] Oxybutynin E.r. [Ditropan Xl] 10 mg PO QHS 05/25/16 05/25/16 05/23/16 20:00 History Hydrocortisone Supp [Anusol-Hc 25 mg .SEE ORDER DAILY #30 supp 05/29/16 Unknown Rx Supp] Lactulose 10 gm PO BID #600 ml 05/29/16 Unknown Rx Nadolol 40 mg PO DAILY #90 tablet 05/29/16 Unknown Rx - History of Present Illness -Gen Adult Nature of Presenting Problems: 75 yof with Low BP at home checked by home health and by . Pt also been a little more confused than usual and c/o just being very weak. Location of Pain/Injury: reports: none Onset/Duration: reports: 4-6 hours ago Timing: reports: still present Context/Activities at Onset: reports: none Modifying Factors: improves with: nothing Associated Symptoms: reports: weakness Similar Symptoms Previously?: No Recently seen or treated by another doctor?: No Review of Systems - Adult - REVIEW OF SYSTEMS - ADULT Constitutional: reports: see HPI Eyes: reports: no symptoms reported Ears, Nose, Mouth & Throat: reports: no symptoms reported Cardiovascular: reports: see HPI Respiratory: reports: no symptoms reported Gastrointestinal: reports: no symptoms reported Genitourinary: reports: no symptoms reported Musculoskeletal: reports: no symptoms reported Integumentary: reports: no symptoms reported Neurological: reports: see HPI Psychiatric: reports: no symptoms reported All Other Systems: Reviewed and Negative Past History - Adult - PAST MEDICAL HISTORY-ADULT Review of Records: reports: Old Records Reviewed, Nursing Assessment Review, Medications Reviewed, Social history reviewed & non-contributory. Cardiovascular: reports: HTN Neurological: reports: CVA, Multiple Sclerosis, TIA - PRIOR SURGERIES/PROCEDURES Surgical/Procedure History: reports: reviewed, not pertinent - IMMUNIZATION STATUS Childhood Immunizations: See Nurse Assessment Flu Vaccine: See Nurse Assessment - FAMILY HISTORY Family History: reviewed, not pertinent Physical Exam-General - PHYSICAL EXAM-ADULT Initial Vital Signs Reviewed: Yes - CONSTITUTIONAL General Appearance: appears well, no apparent distress, slow to respond - EYES Eyes: PERRL/EOMI, pink conjunctivae - HEAD, EARS, NOSE, MOUTH & THROAT HENMT: normocephalic/atraumatic, moist mucous membranes, normal ENT inspection, TMs normal, pharynx normal - NECK Neck: non-tender, full range of motion, supple, normal inspection - RESPIRATORY Respiratory: chest non-tender, lungs clear, normal breath sounds, no pleuratic chest pain, no respiratory distress, no accessory muscle use - CARDIOVASCULAR Cardiovascular: normal peripheral pulses, regular rate, rhythm, no edema, no gallop, no JVD, no murmur - GASTROINTESTINAL (ABDOMEN) Abdominal Exam: normal bowel sounds, non tender, soft, no organomegaly, no pulsatile mass - LYMPHATIC Lymphatic: no adenopathy - MUSCULOSKELETAL Back Exam: normal inspection, no CVA tenderness, no vertebral tenderness Extremity: normal range of motion, non-tender, normal inspection, no pedal edema , no calf tenderness, normal capillary refill, pelvis stable - SKIN Integumentary: normal color, normal turgor, warm/dry - NEUROLOGIC Neurologic: grossly normal - PSYCHIATRIC Psych/Mental Status: oriented x 3 Progress - PLAN OF CARE/RESULTS Progress/Plan/Lab Results: Vital Signs - 8 hr 06/29/16 19:12 Temperature 97.9 F Pulse Rate 75 Respiratory Rate 20 Blood Pressure 104/55 O2 Sat by Pulse Oximetry 99 Orders Category Date Time Status Cardiac Monitoring DIRECTED Care 06/29/16 20:03 Ordered Finger Stick Blood Sugar (ED) DIRECTED Care 06/29/16 20:03 Ordered Saline Loc NOW Care 06/29/16 20:03 Ordered CHEST-PORTABLE [RAD] Stat Exams 06/29/16 20:03 Ordered HEAD W/O CONTRAST [CT] Stat Exams 06/29/16 20:03 Ordered CBC WITH ELECTRONIC DIFF [HEME] Stat Lab 06/29/16 20:03 Uncollected CK PROFILE [SP CHEM] Stat Lab 06/29/16 20:03 Uncollected COMPREHENSIVE METABOLIC PANEL [CHEM] Stat Lab 06/29/16 20:03 Uncollected LACTATE, PLASMA [CHEM] Stat Lab 06/29/16 20:03 Uncollected PROTIME WITH INR [COAG] Stat Lab 06/29/16 20:03 Uncollected PTT [COAG] Stat Lab 06/29/16 20:03 Uncollected TROPONIN T Stat Lab 06/29/16 20:03 Uncollected URINALYSIS W/POSS RFLX CULT-1 [URINALYSIS] Stat Lab 06/29/16 20:03 Uncollected URINE DRUG SCREEN Stat Lab 06/29/16 20:03 Uncollected Pulse Oximetry Stat Oth 06/29/16 20:03 Ordered EKG [EKG] Stat Ther 06/29/16 19:32 Ordered Result Diagrams: 06/29/16 19:30 06/29/16 19:30 - XRAY 1 XRAY Study: Chest Impression: See EMR Report (Normal per Dr. Hameed.) - CT/MRI 1 CT Study: Head Impression: See EMR Report (Chronic ischemic microvascular changes. Atrophy. No evidence of acute disease.) - CONSULTS/PCP/HOSPITALIST Notification #1 *Consult/PCP/Hospitalist*: [place] Time Discussed: 21:59 Consult Disposition: Will see in ED, Admit Departure - Departure Time of Disposition Decision: 21:55 DIAGNOSIS: UTI (urinary tract infection) Qualifiers: Urinary tract infection type: site unspecified Hematuria presence: without hematuria Qualified Code(s): N39.0 - Urinary tract infection, site not specified Disposition: ADMITTED INPATIENT 09 Certified Medical Emergency: Emergent Condition: Stable Referrals and Follow-Ups: David Hameed MD [Primary Care Provider] - - Critical Care Note This patient required my direct & personal management of CC.: No Attestation - Physician/ ENMANUEL Attestation Patient care was provided by Advanced Practice Provider:: Yes Advanced Practice Provider:: Edgar Cerrato Advanced Practice Provider documentation review:: The Mid-level provider documentation, treatment plan and medical decision making was reviewed by the physician who agrees with all treatment and medical decision making by the MLP.
[2016-06-29 20:46] LABS: MANUAL DIFF NEEDED? NO
--- NOTE | 2016-06-29 20:48 | Diag Imaging Result Document ---
PROCEDURE NAME: HEAD W/O CONTRAST - 06/29/2016 CT OF THE HEAD WITHOUT CONTRAST: FINDINGS: There is generalized cerebral atrophy. There is extensive abnormal lucency throughout the white matter of both hemispheres. This appearance has not changed appreciably since the previous study of 12/17/2015. There are calcifications in the basal ganglia. The visualized paranasal sinuses are clear. IMPRESSION: Chronic ischemic microvascular changes. Atrophy. No evidence of acute disease.
[2016-06-29 20:58] LABS: ALBUMIN 3.3 g/dL (3.5-5.0); CALCIUM 10.6 mg/dL (8.8-10.2); POTASSIUM 4.7 mmol/L (3.5-5.1); TOTAL BILIRUBIN 0.39 mg/dL (0.20-1.00); TOTAL PROTEIN 7.2 g/dL (6.3-8.3)
[2016-06-29 21:06] LABS: URINE SOURCE CATH
[2016-06-29 21:10] LABS: INR 1.19; PROTIME 12.6 Seconds (9.2-11.7); PTT 26.9 Seconds (22.0-36.0)
[2016-06-29 21:13] LABS: BASO% 0.5 % (0.0-0.8); EOS# 0.55 X1000 (0.0-0.7); EOS% 9.6 % (0.0-10.0); HEMOGLOBIN 11.1 g/dL (12.0-16.0); LYMPH% 24.4 % (20.5-51.1); MCH 25.8 PG (27-31); MCHC 31.7 g/dL (33-37); MCV 81.2 FL (81-99); MONO# 0.84 X1000 (0.11-0.59); MONO% 14.6 % (1.7-9.3); MPV 11.3 FL (7.4-10.4); NEUT% 50.9 % (42.2-75.2); PLT 87 X1000 (130-400); RBC 4.31 XMIL (4.2-5.4)
[2016-06-29 21:21] LABS: BILIRUBIN URINE NEGATIVE (NEGATIVE); BLOOD URINE TRACE (NEGATIVE); COLOR YELLOW; GLUCOSE URINE NEGATIVE (NEGATIVE); LEUKOCYTES URINE LARGE (NEGATIVE); NITRITE URINE NEGATIVE (NEGATIVE); PROTEIN URINE 30 mg/dL (NEGATIVE); SP GRAVITY URINE 1.017; TURBIDITY URINE TURBID (CLEAR); UROBILINOGEN URINE NORMAL (NORMAL)
[2016-06-29 21:23] LABS: URINE MICRO REVIEW NEEDED? YES
[2016-06-29 21:26] LABS: UR AMPHETAMINES QUAL NONE DETECTED (NONE DETECT); UR BARBITUATES QUAL NONE DETECTED (NONE DETECT); UR BENZODIAZEPIN QUAL NONE DETECTED (NONE DETECT); UR CANNABINOIDS QUAL NONE DETECTED (NONE DETECT); UR COCAINE QUAL NONE DETECTED (NONE DETECT); UR METHADONE QUAL NONE DETECTED (NONE DETECT); UR OPIATES QUAL NONE DETECTED (NONE DETECT); UR OXYCODONE QUAL NONE DETECTED (NONE DETECT); UR PCP QUAL NONE DETECTED (NONE DETECT)
[2016-06-29 21:30] LABS: UR EPITHELIAL CELLS <10 /HPF (<10); URINE BACTERIA 4+ /HPF; URINE CULTURE NEEDED? YES; URINE WBC TNTC /HPF (<10)
[2016-06-29] MEDS ORDERED: NS 1,000 ML IV ONE (21:54)
[2016-06-29] MEDS ORDERED: ROCEPHIN 1 GM/NS 1 GM/50 ML IVPB IV ONE (21:58)
--- NOTE | 2016-06-29 23:34 | HISTORY AND PHYSICAL ---
REASON FOR ADMISSION: A 2-day history of progressive weakness. HISTORY OF PRESENT ILLNESS: Ms. Shelia Dubon is a 75-year-old lady with a past medical history of dementia, type 2 diabetes, nonalcoholic cirrhosis, hypertension, hyperlipidemia, multiple sclerosis, complicated with neurogenic bladder, acid reflux, vitamin D deficiency, peripheral neuropathy, who was brought in by the family when it was noted that her blood pressure was running in the 60-70 systolic range by her home health team. Patient actually had been feeling weak, progressively weak, for the last 2 days. Today, she was not only weak, but more confused than usual. The patient is a very poor historian due to her underlying dementia, but she informs me that she has no chest pain, no pain anywhere. No cardiorespiratory complaints. No GI or complaints. Her is at bedside, informs me that her urine output has declined, in addition to her confusion. She denies any fever or chills. states that she has not had a bowel movement in the last 24 hours. She normally has a bowel movement every day. REVIEW OF SYSTEMS: Very limited due to the patient's underlying cognitive problems. Currently, she is 90/50 after receiving 2 normal saline boluses. Twelve system review is negative. Positive findings as per HPI. ALLERGIES: Carbamazepine, tetanus toxoid vaccine, adhesives, and Norvasc which causes edema. SOCIAL HISTORY: . Lives with her spouse. No smoking, drinking, or illicit drugs. Lives in [place]. FAMILY HISTORY: Notable for heart disease, thalassemia, and dementia in first-degree relatives. SURGICAL HISTORY: Suprapubic cystostomy, incisional hernia repair, bowel resection following Meckel's diverticulum, bilateral cataract surgeries, hysterectomy, appendectomy and tonsillectomy. HOME MEDICATIONS: 1. Lisinopril 20 mg daily. 2. Prevacid 30 mg daily. 3. Lactulose 10 g b.i.d. 4. She is on probiotics daily. 5. She takes hydrocortisone suppositories daily. 6. Depakote 500 mg at bedtime. 7. Nuvigil 150 mg q.a.m. 8. Amantadine 100 mg b.i.d. 9. Acyclovir 200 mg b.i.d. 10. Ritalin 20 mg daily. 11. Metformin 500 mg daily. 12. Namenda/Aricept 1 b.i.d. 13. Nadolol 40 mg daily. 14. Lopressor 25 mg daily. 15. Oxybutynin 10 mg at bedtime. 16. MiraLAX 17 g p.r.n. 17. Metamucil 1 capsule daily. 18. Zoloft 100 mg at bedtime. 19. Sodium chloride tablets 2 tablets b.i.d. 20. Zanaflex 2 mg b.i.d. 21. Tramadol 50 mg p.r.n. LABORATORY WORK: EKG shows normal sinus rhythm, no ST-wave changes, consistent with ischemia. White count 5000, hemoglobin and hematocrit 11 and 35, platelets 87. BUN 31, creatinine 1.8, last creatinine was 0.9. Glucose 148. Calcium 10.6. AST 38, ALT 23, alkaline phosphatase 124. Troponin is negative. Albumin 3.3. INR 1.1. Lactate was reported 3.4. Urine drug screen is negative. Urinalysis shows 4+ bacteria, too numerous to count white cells, and yeastlike cells present. Head CT is negative. Chest film reviewed by me shows normal cardiac shadow, normal vasculature, good penetration. No infiltrates noted. PHYSICAL EXAMINATION: VITAL SIGNS: Blood pressure is 99/53, heart rate 70, respirations 17, temperature 97.9, 99% on room air. GENERAL: She is a pleasant elderly woman laying in bed, not in acute distress. She is alert and oriented x3, with normal mood and affect. HEENT: Head is normocephalic, atraumatic. EYES: She has left-sided ptosis. Pupils are equal, reactive to light, and EOMI. She is anicteric, but pale. ENT: Exam is grossly normal. No central cyanosis. No oropharyngeal exudate. NECK: Supple. No JVD or carotid bruit. No thyromegaly. CHEST: Clear to auscultation. Good air entry in both lung beckman. CARDIOVASCULAR: First and second heart sounds heard. No gallops. A 3/6 ejection systolic murmur heard all over, with no air of localization. Rhythm is regular. ABDOMEN: Protuberant, soft, with a left-sided CVA tenderness and suprapubic tenderness. She has a suprapubic catheter in place, with no erythema surrounding the cystostomy, and no exudate exuding from the cystostomy. RECTAL: Deferred. EXTREMITIES: The patient has 3-4 over 5 power in upper extremities, and 2/5 on the lower extremities. Pulses distally in the lower extremities are intact. No clubbing or peripheral cyanosis. NEUROLOGIC: See above. No gross focal deficits appreciated. Otherwise, no myoclonus. SKIN: Intact. No breakdown, lesions, or erythema. MUSCULAR: Grossly normal. ASSESSMENT: 1. Acute kidney injury secondary to hypotensive effects of blood pressure medication. 2. Hypotensive secondary to medication. 3. Encephalopathy secondary to hypotensive effects of medication and possible hepatic encephalopathy, which could be triggered by hypotension. Encephalopathy could also be related to a urinary tract infection. 4. Nonalcoholic cirrhosis. 5. Urinary tract infection. 6. Anemia of chronic inflammation. 7. Multiple sclerosis. 8. History of hypertension. 9. Dementia. PLAN: At this time, we will treat patient with Maxipime due to the fact the patient was just recently discharged from hospital and we need to cover for Pseudomonas. IV fluids will be initiated to get blood pressure to acceptable levels. This will also be given to correct any intravascular depletion. It is likely this could be hepatorenal syndrome, type 1, but I have ordered a spot sodium urine to address this if her renal function does not improve. Discontinue lisinopril, withhold beta-blockers for systolic blood pressure greater than 130s. Withhold metformin for diabetes and consider starting patient on a sliding scale if deemed necessary at this point in time. Check valproic levels also to make sure they are not toxic. Discontinue acyclovir, as this could further worsen renal function. Hold off any ADMITTING COORDINATOR-acting medication for the next 24-48 hours and see if her sensorium improves. SCDs will be our choice of DVT prophylaxis. cc: MD Marquez Priest MD
[2016-06-30] MEDS ORDERED: MIRALAX PO PRN (00:08)
[2016-06-30] MEDS ORDERED: ULTRAM PO PRN (00:08)
[2016-06-30] MEDS ORDERED: ZOFRAN IV PRN (00:08)
[2016-06-30] MEDS ORDERED: TYLENOL PO PRN (00:08)
[2016-06-30] MEDS: MAXIPIME 1 GM/NS 1 GM/50 ML IVPB IV SCH ×3 (01:20→23:49)
[2016-06-30] MEDS: NS 1,000 ML IV SCH ×2 (01:20→10:42)
--- NOTE | 2016-06-30 05:07 | EKG Report ---
Test Performed on : 06/29/2016 7:33:29 PM Test Reason : BP Blood Pressure : / mmHG Vent. Rate : 072 BPM Atrial Rate : 072 BPM P-R Int : 138 ms QRS Dur : 078 ms QT Int : 428 ms P-R-T Axes : 030 -20 027 degrees QTc Int : 468 ms Normal sinus rhythm. Normal ECG When compared with ECG of 24-MAY-2016 11:47, No significant change was found Unconfirmed Result
[2016-06-30] MEDS: PRILOSEC PO SCH (06:21)
[2016-06-30 06:39] LABS: HEMATOCRIT 30.6 % (37.0-47.0); HEMOGLOBIN 9.6 g/dL (12.0-16.0); MCH 25.5 PG (27-31); MCHC 31.4 g/dL (33-37); MCV 81.2 FL (81-99); MPV 10.2 FL (7.4-10.4); RBC 3.77 XMIL (4.2-5.4)
[2016-06-30 06:53] LABS: CALCIUM 9.6 mg/dL (8.8-10.2); POTASSIUM 4.5 mmol/L (3.5-5.1); TOTAL BILIRUBIN 0.3 mg/dL (0.20-1.00); TOTAL PROTEIN 6.6 g/dL (6.3-8.3)
--- NOTE | 2016-06-30 08:11 | Diag Imaging Result Document ---
PROCEDURE NAME: CHEST-PORTABLE - 06/29/2016 SINGLE FRONTAL RADIOGRAPH OF THE CHEST: COMPARISON: 05/24/2016. FINDINGS: The lungs are grossly clear. There is no discrete pleural fluid collection or pneumothorax. The cardiomediastinal silhouette and upper airway are grossly unremarkable. IMPRESSION: No evidence of acute chest pathology.
[2016-06-30] MEDS ORDERED: DONEPEZIL HCL PO SCH (09:00)
[2016-06-30] MEDS ORDERED: MEMANTINE HCL PO SCH (09:00)
[2016-06-30] MEDS: RITALIN PO SCH (10:45)
[2016-06-30] MEDS: ZANAFLEX PO SCH ×3 (10:46→18:57)
[2016-06-30] MEDS: LACTULOSE PO SCH ×2 (10:47→21:02)
[2016-06-30] MEDS: METAMUCIL PO SCH ×2 (10:47)
[2016-06-30] MEDS: ANUSOL-HC SUPP PR SCH (10:47)
[2016-06-30] MEDS: CORGARD PO SCH (10:47)
[2016-06-30] MEDS: SYMMETREL PO SCH ×2 (10:47→21:03)
--- NOTE | 2016-06-30 10:54 | PROGRESS NOTE ---
DATE: 06/30/2016 This is a level 3 documentation. SUBJECTIVE: The patient was admitted last night by hospitalist for altered mental status and hypotension. The patient has a low blood pressure. REVIEW OF SYSTEMS: Today, the patient is awake. Denies of any headache. Cardiopulmonary: No chest pain, shortness of breath, PND, orthopnea. GI: Abdominal distention stable. No nausea, vomiting, altered bowel habits. : Had a suprapubic catheter. No swelling of feet. No skin rashes. Neurologic Examination: No obvious focal symptoms or weakness. Past medical history, past surgical history, medications were reviewed. Is and Os negative 350 mL. PHYSICAL EXAMINATION: Vital Signs: Afebrile, blood pressure is 124/62, 5 feet 6 inches, 180 pounds, and 98% on room air. HEENT Examination: Within normal limits. General: Awake. Neck: Supple. No lymphadenopathy. Chest: Clear. Heart: Heart sounds are regular. No murmurs. Abdomen: Belly is soft, obese, nontender. Good bowel sounds. No masses palpable. Extremities: No peripheral edema, cyanosis. Neurologic: No obvious neurological deficits. INVESTIGATIONS: White cell count 3.8, hematocrit 30, platelets 58,000. PT/INR is normal. SMA 7: BUN 30, creatinine 1.3. Urinalysis is clear. CT head, chronic ischemic changes. Nothing acute. Chest x-ray, no evidence of acute chest pathology. EKG is normal sinus, nothing acute. ASSESSMENT AND PLAN: 1. Hypotension. Discontinue lisinopril. 2. 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 Continue on nadolol. 3. Possible urinary tract infection. Follow up on culture and sensitivity. 4. Ammonia encephalopathy. Continue lactulose. Check the lactose levels. 5. Sleep apnea, on CPAP machine. 6. History of multiple sclerosis, stable. 7. Acid reflux disease, on Prilosec. 8. Discussed the plan of care with the patient as well as the . 9. Level of documentation is 35 minutes. cc: Marquez Hameed MD
[2016-06-30] MEDS: PROVIGIL PO SCH (12:06)
[2016-06-30] MEDS: DEPAKOTE PO SCH (21:02)
[2016-06-30] MEDS: ULTRAM PO PRN (21:40)
[2016-06-30] MEDS: PATIENT'S OWN MED PO SCH (22:14)
[2016-07-01 06:10] LABS: MANUAL DIFF NEEDED? NO
[2016-07-01] MEDS: PRILOSEC PO SCH (06:10)
[2016-07-01 06:21] LABS: BASO% 0.6 % (0.0-0.8); EOS# 0.32 X1000 (0.0-0.7); HEMATOCRIT 29.4 % (37.0-47.0); HEMOGLOBIN 9.2 g/dL (12.0-16.0); LYMPH# 1.03 X1000 (1.2-3.4); MCH 25.6 PG (27-31); MCHC 31.3 g/dL (33-37); MCV 81.7 FL (81-99); MONO# 0.58 X1000 (0.11-0.59); MONO% 16.3 % (1.7-9.3); MPV 9.8 FL (7.4-10.4); NEUT% 45.1 % (42.2-75.2); PLT 54 X1000 (130-400)
[2016-07-01 06:24] LABS: CALCIUM 9.7 mg/dL (8.8-10.2); POTASSIUM 4.8 mmol/L (3.5-5.1)
[2016-07-01] MEDS: LACTULOSE PO SCH ×2 (09:19→20:40)
[2016-07-01] MEDS: METAMUCIL PO SCH ×2 (09:19)
[2016-07-01] MEDS: PROVIGIL PO SCH (09:19)
[2016-07-01] MEDS: SYMMETREL PO SCH ×2 (09:19→20:39)
[2016-07-01] MEDS: RITALIN PO SCH (09:20)
[2016-07-01] MEDS: ANUSOL-HC SUPP PR SCH (09:20)
[2016-07-01] MEDS: ZANAFLEX PO SCH ×3 (09:20→18:13)
[2016-07-01] MEDS: CORGARD PO SCH (09:20)
[2016-07-01] MEDS: GLUCOPHAGE PO SCH (10:39)
[2016-07-01] MEDS: CULTURELLE PO SCH (10:41)
[2016-07-01] MEDS: MAXIPIME 1 GM/NS 1 GM/50 ML IVPB IV SCH (12:52)
--- NOTE | 2016-07-01 19:36 | PROGRESS NOTE ---
DATE: 07/01/2016 SUBJECTIVE: Patient's mental status improved and eating very well. REVIEW OF SYSTEMS: No headache and no vision problem.Cardiopulmonary: No chest pain, shortness of breath, PND, orthopnea. GI: No nausea, vomiting, abdominal pain. No swelling of feet. Neurologic: Nonfocal. No asterixis noted. DATA: I's and O's even. LABORATORY DATA: CBC: White cell count 3.5, hematocrit 29.4, platelets 54,000. SMA-7: Sodium 135, potassium 4.8, chloride 101, BUN 20, creatinine 1.1, glucose 130. Cardiac enzymes were normal. Urine cultures so far were negative. Ammonia levels 39. ASSESSMENT AND PLAN: 1. Hypertension with azotemia, improving. Discontinue lisinopril. 2. Type 2 diabetes. Start on metformin. 3. Possible urinary tract infection. Follow up urine cultures. So far, negative. We will treat only symptomatic infection. 4. Ammonia encephalopathy. Better. Continue on lactulose. 5. Nonalcoholic steatohepatitis with cirrhosis. Continue on nadolol and Prilosec. 6. Thrombocytopenia, stable. Level of documentation, 25 minutes. Discussed with the patient's . cc: Marquez Hameed MD
[2016-07-01] MEDS: DEPAKOTE PO SCH (20:39)
[2016-07-01] MEDS: ULTRAM PO PRN (20:40)
[2016-07-01] MEDS ORDERED: ZOLOFT PO SCH (21:00)
[2016-07-02] MEDS: MAXIPIME 1 GM/NS 1 GM/50 ML IVPB IV SCH (00:14)
[2016-07-02] MEDS: PATIENT'S OWN MED PO SCH (00:51)
[2016-07-02 05:41] VITALS: BP 130/62
[2016-07-02 07:20] LABS: MANUAL DIFF NEEDED? NO
[2016-07-02 07:34] LABS: BASO% 0.3 % (0.0-0.8); EOS# 0.39 X1000 (0.0-0.7); EOS% 10.5 % (0.0-10.0); HEMATOCRIT 32.2 % (37.0-47.0); HEMOGLOBIN 10.2 g/dL (12.0-16.0); LYMPH# 0.97 X1000 (1.2-3.4); LYMPH% 26.1 % (20.5-51.1); MCH 25.6 PG (27-31); MCHC 31.7 g/dL (33-37); MCV 80.7 FL (81-99); MONO# 0.62 X1000 (0.11-0.59); MONO% 16.7 % (1.7-9.3); MPV 10.6 FL (7.4-10.4); NEUT% 46.4 % (42.2-75.2); PLT 51 X1000 (130-400); RBC 3.99 XMIL (4.2-5.4)
[2016-07-02 07:44] LABS: CALCIUM 9.9 mg/dL (8.8-10.2); POTASSIUM 4.5 mmol/L (3.5-5.1)
[2016-07-02] MEDS: LACTULOSE PO SCH (09:14)
[2016-07-02] MEDS: METAMUCIL PO SCH ×2 (09:14)
[2016-07-02] MEDS: PRILOSEC PO SCH (09:14)
[2016-07-02] MEDS: CORGARD PO SCH (09:15)
[2016-07-02] MEDS: CULTURELLE PO SCH (09:15)
[2016-07-02] MEDS: ZANAFLEX PO SCH (09:15)
[2016-07-02] MEDS: GLUCOPHAGE PO SCH (09:15)
[2016-07-02] MEDS: ANUSOL-HC SUPP PR SCH (09:16)
[2016-07-02] MEDS: PROVIGIL PO SCH (10:38)
[2016-07-02] MEDS: SYMMETREL PO SCH (10:38)
[2016-07-02] MEDS: RITALIN PO SCH (10:38)
[2016-07-03] MEDS ORDERED: ZOVIRAX PO SCH (09:00)
--- NOTE | 2016-07-03 09:34 | DISCHARGE SUMMARY ---
ADMISSION DATE: 06/30/2016 DISCHARGE DATE: 07/02/2016 DISCHARGING DIAGNOSIS: 1. Acute altered mental status due to metabolic encephalopathy due to hypotension. 2. Acute kidney injury due to prerenal azotemia. 3. Non-alcohol steatohepatitis. 4. Thrombocytopenia due to splenomegaly. 5. Hemorrhoids. 6. Dementia. Mini-mental exam . 7. Type 2 diabetes. 8. Metabolic syndrome. 9. Hypertension. 10. Hyperlipidemia. 11. Multiple sclerosis, stable. 12. Status post neurogenic bladder. 13. Recurrent urinary tract infection. 14. Acid reflux disease. 15. Peripheral neuropathy. 16. Vitamin D deficiency. 17. Left breast fibroadenoma. 18. History of left ventricular outflow obstruction with hyperdynamic heart due to dehydration. 19. Obstructive sleep apnea on C-PAP machine. BRIEF HISTORY: Please see the H and P that was done by Dr. Hernandez. In brief, she is a 75-year- old pleasant white female from [place] under the care of [facility], who basically came in with altered mental status, low blood pressure, azotemia, possible UTI. The patient was given 2 L of normal saline. Lisinopril was stopped. Follow up hydration. Renal function tests came back normal. For part of the confusion, ammonia levels were normal. She remains thrombocytopenic. Abdominal distention was stable. She has been tolerating the diet very well. Follow up urine cultures were negative, except some yeast infection. Findings were discussed with the patient, . Will stop the lisinopril and discharge her home in a stable condition. At the time of discharge, weight was 188 pounds. LABORATORIES: White cell count 3.7, hematocrit 32, platelet count 51. SMA 7: Sodium 135, potassium 4.5, chloride 101, CO2 23, BUN 18, creatinine 1.0, glucose 112. Urine cultures were negative. Blood pressure is 130/62. DISCHARGE MEDICATIONS: The medications as follows: 1. Metformin 500 daily. 2. Tramadol 50 q. 6 hours as needed. 3. Culturelle 1 tablet daily. 4. MiraLAX 17 g daily as needed. 5. Discontinue lisinopril. 6. Zanaflex 2 mg t.i.d. 7. Zoloft 100 daily. 8. Prevacid 30 daily. 9. Amantadine 100 p.o. b.i.d. 10. Namzaric 28/1 tablet daily. 11. Discontinue Depakote. 12. Nuvigil 150 daily. 13. Oxybutynin 10 mg as needed. 14. Hydrocortisone suppository as needed. 15. Lactulose 10 mg p.o. b.i.d. 16. Nadolol 40 mg daily. 17. Lasix as needed. 18. Ritalin was discontinued. 19. Aldactone 25 daily. FOLLOW UP: Follow up in my office next week. We will discontinue some of the medications as an outpatient since she is not going to anymore [facility] treatment. cc: MD Onesimo Kenny MD
== END 2016-07-02 12:08 | disposition home or self-care (01) ==
LOC: ED 19:06 → SUATTDRO 06-30 00:03 → 3N 06-30 00:03
PROVIDERS: ADMIT Internal Medicine; ATTEND Internal Medicine